=== PATIENT | female | born 1995 | race Caucasian/White ===

== ENCOUNTER 2017-05-15 13:48 | Emergency (ER) | payer OTHER ==
[~2017-05-15] VITALS: Ht 152.4 cm; Wt 77.7 kg
[2017-05-15 13:52] VITALS: BP 114/67; PULSE 99; RESP 12; O2SAT 99
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
[2017-05-15 15:26] LABS: BASOPHILS % (AUTO) 0.3 % (0-3); EOSINOPHILS % (AUTO) 0 % (0-5); MONOCYTES % (AUTO) 11.9 % (4-12); Mean Corpuscular Hemoglobin 28.4 pg (27.0-35.0); Mean Corpuscular Volume 82.8 fL (81-100); NEUTROPHILS % (AUTO) 56.2 % (40-74); Platelet Count 246 bil/L (150-400)
[2017-05-15 16:20] LABS: APPEARANCE,URINE CLEAR (CLEAR,HAZY); COLOR,URINE YELLOW (YELLOW); PH,URINE 6.5 (5.0-8.0)
[2017-05-15 16:21] LABS: OCCULT BLOOD,URINE MODERATE (NEGATIVE)
[2017-05-15] MEDS ORDERED: METO-301 PO (16:40)
[2017-05-15 16:47] VITALS: BP 100/62; PULSE 91; RESP 16; O2SAT 98
== END 2017-05-15 16:48 | disposition home or self-care (01) ==
LOC: SED 13:48
DX: R10.9 Unspecified abdominal pain (principal); F43.10 Post-traumatic stress disorder, unspecified; Z88.2 Allergy status to sulfonamides